=== PATIENT | female | born 2000 | race Caucasian/White ===

== ENCOUNTER 2022-06-21 13:14 | Observation (INO) | payer MEDICAID, OTHER ==
[~2022-06-21 13:14] MED LIST: Iopamidol-370 76% 500 ML 1 ML ONE
[2022-06-21 13:45] LABS: Hemoglobin 14.5 g/dL (12.0-16.0); Mean Corpuscular HGB CONC 33.8 g/dL (32.0-36.0); Mean Corpuscular Hemoglobin 30.2 pg (27.0-31.0); Mean Corpuscular Volume 89.4 fl (78.0-98.0); Mean Platelet Volume 7.5 fL (7.4-10.4); Platelet Count 368 10x3/uL (130-400); RBC Distribution Width 12.2 % (11.5-14.5); Red Blood Cell (RBC) Count 4.79 mill/uL (4.20-5.40)
[2022-06-21 13:53] LABS: BHCG - Serum Negative (NEGATIVE); Pregs Control Bar Appear? YES (CONTROL BAR)
[2022-06-21 13:54] LABS: Pregs Control Background? CLEAR/WHITE (CLR/WHITE)
[2022-06-21 14:02] LABS: ALT (SGPT) 24 U/L (8-55); AST (SGOT) 15 U/L (5-34); Albumin 4.6 g/dL (3.5-5.0); Alkaline Phosphatase 81 U/L (40-110); Anion Gap 16 mmol/L (10-20); BUN (Urea Nitrogen) 10 mg/dL (7.0-18.7); Band 1 % (5-11); Bilirubin, Total 0.7 mg/dL (0.2-1.2); Calc. Creatinine Clearance 0 mL/min (70-130); Calcium 10.1 mg/dL (7.8-10.44); Carbon Dioxide 19 mmol/L (22-29); Chloride 104 mmol/L (98-107); Estimated GFR 112; Globulin 3.7 g/dL (2.4-3.5); Glucose 125 mg/dL (70-105); Lipase 36 U/L (8-78); Lymphocytes 9 % (21-51); MDiff Complete? YES; Monocytes 6 % (0-10); Neutrophil 84 % (42-75); Platelet Morphology Comment Appears Adequate; Potassium 3.6 mmol/L (3.5-5.1); Protein, Total 8.3 g/dL (6.0-8.3); RBC Morphology Normal; Sodium 135 mmol/L (136-145)
[2022-06-21] MEDS ORDERED: Ondansetron PF 4 MG/2 ML Vial ONE ×2 (14:41→18:36)
[2022-06-21] MEDS ORDERED: Ketorolac Tromethamine 30 MG/ML VIAL ONE ×2 (15:30→21:40)
[2022-06-21 16:44] LABS: Bacteria/HPF None Seen HPF (None Seen); Bilirubin Negative (Negative); Blood, Urine 1+ (Negative); Clarity Clear (Clear); Glucose, Urine (Dipstick) Normal (Negative); Ketone, Urine Trace mg/dL (Negative); Leukocyte Negative Leu/uL (Negative); Nitrite Negative (Negative); Protein, Urine (Dipstick) 30 mg/dL (Neg-Trace); RBC/HPF 0-3 HPF (0-3); Specific Gravity, Urine 1.041 (1.002-1.036); Squamous Epithelial 0-3 HPF (0-3); Urobilinogen Normal mg/dL (Less than 2); WBC/HPF 0-3 HPF (0-3); pH, Urine 6.5 (5.0-9.0)
[2022-06-21] MEDS ORDERED: Ondansetron ODT 4 MG TAB PO PRN (17:13)
[2022-06-21] MEDS ORDERED: Lactated Ringer's 1,000 ML IV SCH (17:30)
[2022-06-21 18:06] LABS: Cardiac Risk 2.8 (Less than 4.5)
[2022-06-21] MEDS ORDERED: Morphine 2 MG/ML VIAL ONE (18:36)
[2022-06-21] MEDS ORDERED: Piperacillin/Tazobactam 4.5 GM VIAL ONE (18:44)
[2022-06-21] MEDS ORDERED: Acetaminophen 500 MG TAB ONE (20:22)
[2022-06-21] MEDS: Acetaminophen 500 MG TAB PO PRN (20:24)
[2022-06-21] MEDS: Ketorolac Tromethamine 30 MG/ML VIAL IVP PRN (21:44)
[2022-06-22] MEDS ORDERED: Ondansetron PF 4 MG/2 ML Vial ONE ×3 (00:05→08:36)
[2022-06-22] MEDS ORDERED: Morphine 2 MG/ML VIAL ONE (00:05)
[2022-06-22] MEDS: Morphine 2 MG/ML VIAL SLOW IVP PRN (00:20)
[2022-06-22] MEDS: Lactated Ringer's 1,000 ML IV SCH ×5 (00:20→21:54)
[2022-06-22] MEDS: Ondansetron PF 4 MG/2 ML Vial IVP PRN ×4 (00:21→20:06)
[2022-06-22] MEDS: Ketorolac Tromethamine 30 MG/ML VIAL IVP PRN ×4 (03:03→20:00)
[2022-06-22] MEDS ORDERED: Ketorolac Tromethamine 30 MG/ML VIAL ONE ×2 (03:05→08:36)
[2022-06-22 03:22] VITALS: BMI 47.8
[2022-06-22 03:57] LABS: SARS-CoV-2 NAA Rapid Test Not Detected (NotDetected)
[2022-06-22] MEDS ORDERED: Acetaminophen 500 MG TAB ONE (06:32)
[2022-06-22] MEDS: Acetaminophen 500 MG TAB PO PRN ×2 (06:43→22:59)
[2022-06-22 07:13] LABS: #Eosinphils 0.1 thou/uL (0.0-0.7); #Lymphocytes 2.9 thou/uL (1.20-3.40); #Monocytes 1.1 thou/uL (0.11-0.59); #Neutrophils 13.9 thou/uL (1.40-6.50); %Basophils 0.2 % (0.0-1.0); %Eosinophils 0.4 % (0.0-10.0); %Lymphocytes 15.8 % (21.0-51.0); %Monocytes 6.2 % (0.0-10.0); %Neutrophils 77.4 % (42.0-75.0); Hemoglobin 13.3 g/dL (12.0-16.0); Mean Corpuscular HGB CONC 33.3 g/dL (32.0-36.0); Mean Corpuscular Hemoglobin 29.9 pg (27.0-31.0); Mean Corpuscular Volume 89.8 fl (78.0-98.0); Mean Platelet Volume 7.6 fL (7.4-10.4); Platelet Count 306 10x3/uL (130-400); RBC Distribution Width 12.3 % (11.5-14.5); Red Blood Cell (RBC) Count 4.45 mill/uL (4.20-5.40)
[2022-06-22 07:35] LABS: Anion Gap 12 mmol/L (10-20); BUN (Urea Nitrogen) 8 mg/dL (7.0-18.7); Calc. Creatinine Clearance 233 mL/min (70-130); Calcium 9.3 mg/dL (7.8-10.44); Carbon Dioxide 23 mmol/L (22-29); Chloride 107 mmol/L (98-107); Estimated GFR 118; Glucose 96 mg/dL (70-105); Potassium 3.6 mmol/L (3.5-5.1); Sodium 138 mmol/L (136-145)
[2022-06-22] MEDS ORDERED: Famotidine 20 MG TAB ONE (08:36)
[2022-06-22] MEDS: Famotidine 20 MG TAB PO SCH ×2 (08:50→20:01)
[2022-06-23] MEDS: Ketorolac Tromethamine 30 MG/ML VIAL IVP PRN ×2 (01:57→09:12)
[2022-06-23] MEDS: Ondansetron PF 4 MG/2 ML Vial IVP PRN (02:02)
[2022-06-23] MEDS: Lactated Ringer's 1,000 ML IV SCH (04:36)
[2022-06-23 06:10] LABS: #Basophils 0.1 thou/uL (0.0-0.2); #Eosinphils 0.3 thou/uL (0.0-0.7); #Lymphocytes 2.9 thou/uL (1.20-3.40); #Monocytes 0.9 thou/uL (0.11-0.59); #Neutrophils 6.6 thou/uL (1.40-6.50); %Basophils 0.5 % (0.0-1.0); %Eosinophils 2.8 % (0.0-10.0); %Lymphocytes 27.1 % (21.0-51.0); %Monocytes 8.3 % (0.0-10.0); %Neutrophils 61.3 % (42.0-75.0); Mean Corpuscular HGB CONC 33.7 g/dL (32.0-36.0); Mean Corpuscular Hemoglobin 30.4 pg (27.0-31.0); Mean Platelet Volume 7.6 fL (7.4-10.4); Platelet Count 237 10x3/uL (130-400); Red Blood Cell (RBC) Count 3.95 mill/uL (4.20-5.40); White Blood Cell (WBC) Count 10.8 10x3/uL (4.8-10.8)
[2022-06-23] MEDS: Acetaminophen 500 MG TAB PO PRN (06:12)
[2022-06-23 06:32] LABS: Anion Gap 12 mmol/L (10-20); BUN (Urea Nitrogen) 7 mg/dL (7.0-18.7); Calc. Creatinine Clearance 224 mL/min (70-130); Calcium 9.1 mg/dL (7.8-10.44); Carbon Dioxide 23 mmol/L (22-29); Chloride 107 mmol/L (98-107); Estimated GFR 112; Glucose 80 mg/dL (70-105); Potassium 3.4 mmol/L (3.5-5.1); Sodium 139 mmol/L (136-145)
[2022-06-23] MEDS ORDERED: Lactated Ringer's 1,000 ML IV SCH (06:32)
[2022-06-23] MEDS: Famotidine 20 MG TAB PO SCH (08:13)
[2022-06-23 08:21] VITALS: BP 124/74; TEMP 97.7
[2022-06-23] MEDS: Morphine 2 MG/ML VIAL SLOW IVP PRN (11:55)
[2022-06-23] MEDS ORDERED: Sucralfate 1 GM/10 ML UDCUP PO SCH (12:45)
== END 2022-06-23 14:02 | disposition home or self-care (01) ==
LOC: ERS 13:14 → ERHOLD 17:17 → MSONC 06-22 11:50
PROVIDERS: ADMIT Family Medicine; ATTEND Family Medicine
DX: K85.90 Acute pancreatitis without necrosis or infection, unspecified (principal); R31.9 Hematuria, unspecified; F90.9 Attention-deficit hyperactivity disorder, unspecified type; F17.290 Nicotine dependence, other tobacco product, uncomplicated; E66.9 Obesity, unspecified; Z68.42 Body mass index [BMI] 45.0-49.9, adult; Z20.822 Contact with and (suspected) exposure to COVID-19
CPT/HCPCS: 36415; 74177; 80048; 80053; 80061; 81003; 81015; 83605; 83690; 84145; 84703; 85025; 87040; 96374; 96375; 96376; G0378; J1885; J2272; J2405; J2543; J7120; Q9967; U0002